=== PATIENT | female | born 1950 | race Caucasian/White ===

== ENCOUNTER 2017-04-26 07:26 | Emergency (ER) | payer OTHER, MEDICARE ==
[2017-04-26 07:30] VITALS: BMI 23.9
--- NOTE | 2017-04-26 07:30 | PDOC ---
History of Present Illness - General Chief Complaint: Injury Stated Complaint: LEFT WRIST INJURY S/P TRIPPED AND FELL Time Seen by Provider: 04/26/17 07:30 History Source: Patient Exam Limitations: No Limitations - History of Present Illness Initial Comments: 67 yo F no PMH presents s/p mechanical trip and fall onto concrete. She fell onto outstretched left hand. No LOC, no head injury. Patient c/o severe L wrist pain, presents with obvious deformity. No loss of sensation or strength in the hand. No other injuries. Past History - Past Medical History Allergies/Adverse Reactions: Allergies Allergy/AdvReac Type Severity Reaction Status Date / Time No Known Allergies Allergy Verified 04/26/17 07:27 Home Medications: Ambulatory Orders NK [No Known Home Medication] 04/26/17 Review of Systems - Review of Systems Able to Perform ROS?: Yes Comments:: GENERAL/CONSTITUTIONAL: No fever or chills. No weakness. HEAD, EYES, EARS, NOSE AND THROAT: No change in vision. No ear pain or discharge. No sore throat. MUSCULOSKELETAL: L wrist pain and swelling. No neck or back pain. SKIN: No rash NEUROLOGIC: No headache, vertigo, loss of consciousness, or change in strength/ sensation. ENDOCRINE: No increased thirst. No abnormal weight change. HEMATOLOGIC/LYMPHATIC: No anemia, easy bleeding, or history of blood clots. ALLERGIC/IMMUNOLOGIC: No hives or skin allergy. *Physical Exam - Physical Exam Comments: GENERAL: Awake, alert, and fully oriented, in no acute distress HEAD: No signs of trauma EYES: PERRLA, EOMI, sclera anicteric, conjunctiva clear ENT: Auricles normal inspection, hearing grossly normal, nares patent, oropharynx clear without exudates. Moist mucosa NECK: Normal ROM, supple, no lymphadenopathy, JVD, or masses EXTREMITIES: L wrist with obvious deformity, tenderness over the distal radius with ecchymosis. ROM limited by pain. Remainder of extremities with normal range of motion, no edema. No clubbing or cyanosis. No cords, erythema, or tenderness NEUROLOGICAL: Cranial nerves II through XII grossly intact. Normal speech, normal gait SKIN: Warm, Dry, normal turgor, no rashes or lesions noted. ED Treatment Course - LABORATORY CBC & Chemistry Diagram: 04/26/17 07:47 04/26/17 07:47 Medical Decision Making - Medical Decision Making 04/26/17 08:48 Patient has followed up with [facility] in the past for tennis elbow. Paged them to review XR. 04/26/17 09:[address] [facility] MANCUSO Ana. Will reduce the fx in their office presently. Patient stable for DC, will f/u immediately. *DC/Admit/Observation/Transfer Diagnosis at time of Disposition: Distal radius fracture, left Qualifiers: Encounter type: initial encounter Fracture type: closed Fracture morphology: unspecified fracture morphology Qualified Code(s): S52.502A - Unspecified fracture of the lower end of left radius, initial encounter for closed fracture - Discharge Dispostion Disposition: HOME Condition at time of disposition: Stable Admit: No - Referrals Referrals: Ricardo Meehan MD [Staff Physician] - - Patient Instructions Printed Discharge Instructions: DI for Wrist Fracture
[2017-04-26] MEDS ORDERED: morphine CARPU-JECT 4 MG/1 ML DISP.SYRIN IVPUSH ONE ×2 (07:33→08:20)
[2017-04-26] MEDS ORDERED: morphine CARPU-JECT 2 MG/1 ML DISP.SYRIN ONE ×2 (07:38→08:34)
[2017-04-26 07:49] VITALS: TEMP 97.8
[2017-04-26 08:50] LABS: ALBUMIN 4.2 g/dl (3.5-5.0); ALK PHOS 66 U/L (32-92); ANION GAP 8 (8-16); BILIRUBIN,TOTAL 0.5 mg/dl (0.2-1.0); CALCIUM 10.1 mg/dl (8.4-10.2); CO2 20 mmol/L (22-28); CREATININE 0.7 mg/dl (0.6-1.3); GLUCOSE,RANDOM 108 mg/dl (74-106); SGOT/AST 32 U/L (10-42); SGPT/ALT 33 U/L (10-40); TOT PROT 6.7 g/dl (6.4-8.3)
[2017-04-26 09:22] VITALS: BP 116/79; PULSE 65
[2017-04-26 09:26] LABS: BASOPHIL 0.9 % (0-2.0); EOSINOPHIL 2.7 % (0-4.5); MCH 33.7 pg (25.7-33.7); MCHC 33.9 g/dl (32.0-36.0); MEAN CELL VOLUME 99.4 fl (80-96); NEUTROPHILS 49.7 % (42.8-82.8); PLATELET COUNT 219 K/MM3 (134-434); RDW 12.8 % (11.6-15.6); WHITE BLOOD COUNT 4.7 K/mm3 (4.0-10.0)
== END 2017-04-26 09:27 | disposition home or self-care (01) ==
LOC: FER 07:26
PROC: 3E033NZ Introduction of Analgesics, Hypnotics, Sedatives into Peripheral Vein, Percutaneous Approach (ICD-10-PCS; principal; 2017-04-26)
DX: S52.502A Unspecified fracture of the lower end of left radius, initial encounter for closed fracture (principal); W18.39XA Other fall on same level, initial encounter; Y93.9 Activity, unspecified; Y92.410 Unspecified street and highway as the place of occurrence of the external cause
CPT/HCPCS: 36415; 73110-TC-LT; 80053; 85025; 96374; 96376; 99282-25

== ENCOUNTER 2017-04-28 10:30 | Day surgery (SDC) | payer OTHER, MEDICARE ==
[2017-04-28 11:34] VITALS: BMI 24.4
[2017-04-28] MEDS ORDERED: MIDAZOLAM HCL 2 MG/2 ML SINGLE DOSE VIAL ONE (12:14)
[2017-04-28] MEDS ORDERED: ROPIVACAINE HCL 0.5% 30ML VIAL ONE (12:14)
[2017-04-28] MEDS ORDERED: DEXAMETHASONE SOD PHOSPHATE 4 MG/1 ML VIAL ONE ×2 (12:14→13:50)
[2017-04-28] MEDS ORDERED: ceFAZolin SODIUM 1 GM VIAL ONE (13:25)
[2017-04-28] MEDS ORDERED: ePHEDrine SULFATE 50 MG/1 ML AMPULE ONE (13:49)
[2017-04-28] MEDS ORDERED: ONDANSETRON 4 MG/2 ML VIAL ONE (13:50)
[2017-04-28] MEDS ORDERED: NEOSTIGMINE METHYLSULFATE 0.5 MG/ML - 10 ML MDV ONE (14:06)
[2017-04-28] MEDS ORDERED: GLYCOPYRROLATE 0.2 MG/1 ML VIAL ONE (14:06)
[2017-04-28] MEDS ORDERED: ACETAMINOPHEN 325 MG TABLET (FP) ONE (15:15)
[2017-04-28 15:52] VITALS: PULSE 69; TEMP 98.2
[2017-04-28] MEDS ORDERED: ACETAMINOPHEN 325 MG TABLET (FP) PO ONE (16:06)
[2017-04-28 16:32] VITALS: BP 98/56
--- NOTE | 2017-05-03 20:54 | OP ---
DATE OF OPERATION: 04/28/2017 PREOPERATIVE DIAGNOSIS: Left comminuted intraarticular displacement of distal radius fracture. POSTOPERATIVE DIAGNOSIS: Left comminuted intraarticular displacement of distal radius fracture. OPERATIVE PROCEDURE: 1. Open reduction internal fixation of left comminuted intraarticular displacement of distal radius fracture with internal fixation of three or more fragments. 2. Left brachioradialis tenotomy. SURGEON: Daniel Hinojosa M.D. RESIDENTIAL GLAZIER: Keyur Echevarria ANESTHESIA: Regional and general. COMPLICATIONS: None. ESTIMATED BLOOD LOSS: Minimal. INDICATION FOR PROCEDURE: The patient is a 67-year-old female with the above findings indicated for operative treatment. Risks, benefits, and alternatives were discussed with patient at length, informed consent was obtained. PROCEDURE: After proper identification of the patient and correct operative site, patient was brought to the operating room and placed supine on the operating room table, all bony prominences well padded. Anesthesia was provided by the anesthesiologist. Intravenous antibiotics were given at the time procedure was performed. Left upper extremity was prepped and draped in the usual sterile fashion. Well padded tourniquet was placed with a sterile prep. Esmarch bandage to exsanguinate the left upper extremity. Tourniquet inflated to 250 mmHg. Longitudinal incision was made over the volar aspect of the wrist. Incision was taken sharply through the skin with sharp and blunt dissection to subcutaneous tissues. Flexor carpi radialis tendon along with the contents of the carpal canal was bluntly and gently retracted in ulna-archuleta direction for the remainder of the procedure. Pronator quadratus was elevated off the distal radius, highly comminuted fracture was noted, and the shaft was pronated out of the area to allow for removal of any hematoma. The fracture was then reduced into satisfactory position and held with an Acumed, Acu-Loc 2 distal radius plate with distal locking screws and proximal nonlocking screws. This provided secure, stable, and satisfactory fixation. Reduction was attempted to be performed, however the pole of the brachioradialis tendon made it impossible to align the radial styloid fragment. Therefore, a subperiosteal brachioradialis tenotomy was performed which allowed proper reduction of the fracture fragments, and at this point the Acumed, Acu-Loc plate was placed. Scapholunate interval and distal radial ulnar joints was stressed and found to be stable. Final x-rays were taken confirming proper placement and sizing of all hardware as well as reduction. Wound was irrigated with saline and approximated in layers using 4-0 Vicryl and 4-0 Monocryl sutures. Steri-Strips and sterile dressings were applied, splint was placed. Patient was reversed from anesthesia and brought to recovery in stable condition. She tolerated procedure well. Livan Rutledge, the assistant media planner, was integral throughout the procedure. This procedure could not have been performed without a skilled operative assistant media planner. DANIEL HINOJOSA M.D. [id number]
== END 2017-04-28 16:25 | disposition home or self-care (01) ==
LOC: FOR 10:30 → FASU 10:30
PROVIDERS: ATTEND Orthopaedic Surgery Hand Surgery
PROC: 0LN60ZZ Release Left Lower Arm and Wrist Tendon, Open Approach (ICD-10-PCS; 2017-04-28)
PROC: 0PSJ04Z Reposition Left Radius with Internal Fixation Device, Open Approach (ICD-10-PCS; principal; 2017-04-28 13:29)
DX: S52.532A Colles' fracture of left radius, initial encounter for closed fracture (principal); X58.XXXA Exposure to other specified factors, initial encounter; Y93.9 Activity, unspecified; Y92.9 Unspecified place or not applicable
CPT/HCPCS: 25290; 25609; C1713; 73110-TC-LT; 94760

== ENCOUNTER 2021-04-18 19:23 | Emergency (ER) | payer OTHER, MEDICARE ==
[2021-04-18 19:36] VITALS: BP 110/68; PULSE 74; TEMP 99.1; BMI 24.5
== END 2021-04-18 20:41 | disposition home or self-care (01) ==
LOC: FER 19:23
DX: S93.401A Sprain of unspecified ligament of right ankle, initial encounter (principal)
CPT/HCPCS: 73610-TC-RT-FY; 73630-TC-RT-FY; 99284-25

== ENCOUNTER 2023-04-12 07:10 | Day surgery (SDC) | payer OTHER, MEDICARE ==
[2023-04-09 12:46] VITALS: BMI 23.6
[2023-04-12] MEDS ORDERED: TROPICAMIDE 1% OPHTH SOLN 15 ML BOTTLE ONE (07:25)
[2023-04-12] MEDS ORDERED: PHENYLEPHRINE 2.5% OPTHALMIC DROP 2ML BOTTLE ONE (07:25)
[2023-04-12 07:36] VITALS: RESP 18
[2023-04-12] MEDS ORDERED: EPINEPHrine/PF 1 MG/1 ML (1:1,000) AMPULE ONE (08:12)
[2023-04-12] MEDS ORDERED: BACITRACIN/POLYMYXIN OPH OINT 3.5 GM TUBE ONE (08:13)
[2023-04-12] MEDS ORDERED: POVIDONE-IODINE 5% OPHTHALMIC PREP 30 ML SOLUTION ONE (08:13)
[2023-04-12] MEDS ORDERED: EPI-SHUGARCAINE (EPINEPHRINE 0.025% & LIDOCAINE-PF 0.75%) 4ML ONE (08:13)
[2023-04-12] MEDS ORDERED: TETRACAINE 0.5% OPHTH SOLN 2 ML BOTTLE ONE (08:13)
[2023-04-12] MEDS ORDERED: BETAXOLOL HCL 0.25% OPHTHALMIC 10 ML DROPSBTL ONE (08:13)
[2023-04-12] MEDS ORDERED: BSS (NA/CA/MG/K) BALANCED SALT SOLUTION OPHTH SOLN 15 ML BOTTLE ONE ×2 (08:13→08:14)
[2023-04-12] MEDS ORDERED: NEO/POLYMYX B SULF/DEXAMETH OPHTHALMIC 5ML BOTTLE ONE (08:14)
[2023-04-12] MEDS ORDERED: MIDAZOLAM HCL 2 MG/2 ML SINGLE DOSE VIAL ONE (08:26)
[2023-04-12] MEDS ORDERED: ACETAMINOPHEN 325 MG TABLET (FP) PO PRN (09:01)
[2023-04-12 09:10] VITALS: TEMP 97.9
[2023-04-12] MEDS ORDERED: PHENYLEPHRINE 2.5% OPHTH SOLN 15 ML BOTTLE OS SCH (09:45)
[2023-04-12] MEDS ORDERED: OFLOXACIN 0.3% OPHTHALMIC SOLUTION 5 ML BOTTLE OS SCH (09:45)
[2023-04-12] MEDS ORDERED: CYCLOPENTOLATE HCL 1% OPHTH SOLN 2 ML BOTTLE OS SCH (09:45)
[2023-04-12] MEDS ORDERED: TROPICAMIDE 1% OPHTH SOLN 15 ML BOTTLE OS SCH (09:45)
[2023-04-12] MEDS ORDERED: KETOROLAC TROMETHAMINE 0.5% EYE DROP 1 DROP DROPS OS SCH (09:45)
[2023-04-12 09:47] VITALS: BP 121/72; PULSE 71
== END 2023-04-12 09:48 | disposition home or self-care (01) ==
LOC: FASU 07:10
PROVIDERS: ATTEND Ophthalmology
PROC: 08RK3JZ Replacement of Left Lens with Synthetic Substitute, Percutaneous Approach (ICD-10-PCS; principal; 2023-04-12 08:40)
DX: H25.12 Age-related nuclear cataract, left eye (principal)
CPT/HCPCS: 66984; V2632

== ENCOUNTER 2023-05-24 07:17 | Day surgery (SDC) | payer OTHER, MEDICARE ==
[2023-04-09 12:56] VITALS: BMI 23.6
[2023-05-24] MEDS ORDERED: TROPICAMIDE 1% OPHTH SOLN 15 ML BOTTLE ONE (07:20)
[2023-05-24] MEDS ORDERED: OFLOXACIN 0.3% OPHTHALMIC SOLUTION 5 ML BOTTLE ONE (07:20)
[2023-05-24] MEDS ORDERED: PHENYLEPHRINE 2.5% OPTHALMIC DROP 2ML BOTTLE ONE (07:21)
[2023-05-24] MEDS ORDERED: KETOROLAC TROMETHAMINE 0.5% EYE DROP 1 DROP DROPS ONE (07:21)
[2023-05-24] MEDS ORDERED: CYCLOPENTOLATE HCL 1% OPHTH SOLN 2 ML BOTTLE ONE (07:21)
[2023-05-24] MEDS: CYCLOPENTOLATE HCL 1% OPHTH SOLN 2 ML BOTTLE OD SCH ×3 (07:50→08:00)
[2023-05-24] MEDS: PHENYLEPHRINE 2.5% OPHTH SOLN 15 ML BOTTLE OD SCH ×3 (07:50→08:00)
[2023-05-24] MEDS: KETOROLAC TROMETHAMINE 0.5% EYE DROP 1 DROP DROPS OD SCH ×3 (07:50→08:00)
[2023-05-24] MEDS: TROPICAMIDE 1% OPHTH SOLN 15 ML BOTTLE OD SCH ×3 (07:50→08:00)
[2023-05-24] MEDS: OFLOXACIN 0.3% OPHTHALMIC SOLUTION 5 ML BOTTLE OD SCH ×3 (07:50→08:00)
[2023-05-24] MEDS ORDERED: TETRACAINE 0.5% OPHTH SOLN 2 ML BOTTLE ONE (08:30)
[2023-05-24] MEDS ORDERED: NEO/POLYMYX B SULF/DEXAMETH OPHTHALMIC 5ML BOTTLE ONE (08:30)
[2023-05-24] MEDS ORDERED: EPINEPHrine/PF 1 MG/1 ML (1:1,000) AMPULE ONE (08:30)
[2023-05-24] MEDS ORDERED: EPI-SHUGARCAINE (EPINEPHRINE 0.025% & LIDOCAINE-PF 0.75%) 4ML ONE (08:30)
[2023-05-24] MEDS ORDERED: BETAXOLOL HCL 0.25% OPHTHALMIC 10 ML DROPSBTL ONE (08:30)
[2023-05-24] MEDS ORDERED: POVIDONE-IODINE 5% OPHTHALMIC PREP 30 ML SOLUTION ONE (08:30)
[2023-05-24] MEDS ORDERED: BSS (NA/CA/MG/K) BALANCED SALT SOLUTION OPHTH SOLN 15 ML BOTTLE ONE (08:30)
[2023-05-24] MEDS ORDERED: BACITRACIN/POLYMYXIN OPH OINT 3.5 GM TUBE ONE (08:30)
[2023-05-24] MEDS ORDERED: MIDAZOLAM HCL 2 MG/2 ML SINGLE DOSE VIAL ONE (08:39)
[2023-05-24] MEDS ORDERED: ACETAMINOPHEN 325 MG TABLET (FP) PO PRN (09:06)
[2023-05-24 09:23] VITALS: RESP 18; TEMP 97.7
[2023-05-24 09:52] VITALS: BP 125/71; PULSE 61
== END 2023-05-24 09:54 | disposition home or self-care (01) ==
LOC: FASU 07:17
PROVIDERS: ATTEND Ophthalmology
PROC: 08RJ3JZ Replacement of Right Lens with Synthetic Substitute, Percutaneous Approach (ICD-10-PCS; principal; 2023-05-24 08:48)
DX: H25.11 Age-related nuclear cataract, right eye (principal)
CPT/HCPCS: 66984; V2632